=== PATIENT | male | born 2000 | race Two or more races ===

== ENCOUNTER 2024-07-31 09:18 | Emergency (ER) | payer MEDICAID, OTHER ==
[~2024-07-31] VITALS: Ht 172.7 cm; Wt 60.0 kg
[2024-07-31 09:45] VITALS: BP 125/80; PULSE 96; RESP 17; TEMP 97.7; O2SAT 100
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
[2024-07-31] MEDS ORDERED: BACL10TA PO (10:28)
[2024-07-31] MEDS ORDERED: IBUP-1454 PO (10:28)
== END 2024-07-31 10:29 | disposition home or self-care (01) ==
LOC: ER 09:22
DX: S16.1XXA Strain of muscle, fascia and tendon at neck level, initial encounter (principal); Z79.1 Long term (current) use of non-steroidal anti-inflammatories (NSAID); V43.52XA Car driver injured in collision with other type car in traffic accident, initial encounter; Y93.89 Activity, other specified; Y92.410 Unspecified street and highway as the place of occurrence of the external cause; Y99.8 Other external cause status
CPT/HCPCS: 72040